=== PATIENT | female | born 1950 | race Caucasian/White ===

== ENCOUNTER → 2020-04-17 | Outpatient (CLI) | payer MEDICARE, OTHER ==
[~2020-04-17] MED LIST: AMOX-358 PO; DILT120C85 PO; DOCU-238 PO; ESTR1TAB24 PO; HYDR-4227 PO; HYDR25TA4 PO; LOSA100T57 PO; PANT40TA3 PO; SLF500T PO
--- NOTE | 2020-04-17 11:56 | Diagnostic Imaging Report ---
INDICATION: Abdominal pain. TIME OF EXAM: 11:40 a.m. FINDINGS: There are surgical clips in the gallbladder fossa. Bowel gas pattern is unremarkable. No significant stool load is identified. There is mild stool in the right colon. Small bowel is nondilated. No pathologic calcifications are seen. There is no free air. IMPRESSION: No acute feature detected. Dictated by: Dictated on workstation # [id number]
== END ==
LOC: RAD 11:24
PROVIDERS: ATTEND Nurse Practitioner Family
DX: K59.00 Constipation, unspecified (principal); R10.9 Unspecified abdominal pain; Z98.890 Other specified postprocedural states
CPT/HCPCS: 74019

== ENCOUNTER 2020-04-18 13:02 | Inpatient (IN) | payer MEDICARE, OTHER ==
[~2020-04-18] VITALS: Ht 167.7 cm; Wt 70.3 kg
--- NOTE | 2020-04-18 13:00 | NUR ---
CAITLIN FLORES admitted to room 410-1, with an admitting diagnosis of diverticulitis , on 04/18/[address] Sandoval office , accompanied by staff .CAITLIN FLORES introduced to surroundings, call light, bed controls, phone, TV, temperature control, lights, meal times, smoking policy, visitor policy, side rail policy, bathrooms and showers. Patient Rights given to patient in the handbook. CAITLIN FLORES verbalizes understanding that [facility] is not responsible for the loss or damage to any personal effects or valuables that are kept in the patients posession during their hospitalization. The following Patient Care Plans and discharge were discussed with the patient. CAITLIN FLORES verbalizes understanding of Interdisciplinary Patient Education. Patient and family were informed about the Rapid Response Team and its purpose.
--- NOTE | 2020-04-18 13:29 | History & Physical ---
History of Present Illness History of Present Illness Reason for visit/HPI This is a 69 year old female with a know history of Crohn's disease and previous small bowel obstructions who presented to my office yesterday with abdominal pain and constipation. She was concerned about a possible early bowel obstruction so she was sent for a stat flat and upright of the abdomen which showed no acute evidence of bowel obstruction or free air. However, her symptoms worsened so she was sent today for lab and a CT of the abdomen and pelvis. I was called by the radiologist with her CT scan findings and she has acute sigmoid diverticulitis with no obvious evidence of a perforation or abscess but the possibility of a microperforation. She will be directly admitted for IV antibiotics, gut rest and surgery consult. Date of Admission Date Seen by a Provider: Apr 18, 2020 Time Seen by a Provider: 13:28 I consulted on this patient on 04/18/20 13:24 Attending Physician Neida Sandoval DO Admitting Physician Neida Sandoval DO Consult Allergies and Home Medications Allergies Coded Allergies: Sulfa (Sulfonamide Antibiotics) (Verified Allergy, Unknown, 04/18/20) codeine (Verified Allergy, Unknown, 04/18/20) Patient Home Medication List Home Medication List Reviewed: Yes Past Odnygrz-Llxflp-Qbdudo Hx Past Med/Social Hx: Reviewed Nursing Past Med/Soc Hx Patient Social History Marrital Status: Employed/Student: retired Review of Systems Constitutional: weakness EENTM: No see HPI, No no symptoms reported, No ear discharge, No hearing loss, No ear pain, No blurred vision, No double vision, No eye pain, No tearing, No vision loss, No dental problems, No hoarseness, No mouth pain, No mouth swelling, No epistaxis, No nose congestion, No nose pain, No throat pain, No throat swelling, No other Respiratory: No no symptoms reported, No see HPI, No cough, No dyspnea on exertion, No hemoptysis, No orthopnea, No phlegm, No short of breath, No stridor, No wheezing, No other Cardiovascular: No no symptoms reported, No see HPI, No chest pain, No edema, No Hx of Intervention, No palpitations, No syncope, No vascular heart diseas, No other Gastrointestinal: abdominal pain (LLQ), constipation, loss of appetite, nausea Genitourinary: No no symptoms reported, No see HPI, No decreased output, No discharge, No dysuria, No frequency, No hematuria, No hesitancy, No incontinence, No nocturia, No pain, No other Musculoskeletal: No no symptoms reported, No see HPI, No back pain, No gout, No joint pain, No joint swelling, No muscle pain, No muscle stiffness, No muscle cramps, No muscle twitching, No muscle weakness, No neck pain, No other Skin: No no symptoms reported, No see HPI, No change in color, No change in hair/nails, No dryness, No hx of skin cancer, No lesions, No lumps, No pruritus, No rash, No other Psychiatric/Neurological: Denies No Symptoms Reported, Denies See HPI, Denies Anxiety, Denies Depressed, Denies Emotional Problems, Denies Headache, Denies Numbness, Denies Paresthesia, Denies Pre-Existing Deficit, Denies Seizure, Denies Tingling, Denies Tremors, Denies Weakness, Denies Other Physical Exam Vital Signs Capillary Refill : Height, Weight, BMI Height: '" Weight: lbs. oz. kg; BMI Method: General Appearance: Mild Distress HEENT: Normal ENT Inspection Neck: Supple Respiratory: Lungs Clear Cardiovascular: Regular Rate, Rhythm Gastrointestinal: Soft, Abnormal Bowel Sounds, Tenderness (generalized but w orse in LLQ) Rectal: Deferred Back: No CVA Tenderness Extremity: Non Tender, No Calf Tenderness, No Pedal Edema Neurologic/Psychiatric: Alert, Oriented x3 Skin: Warm/Dry Assessment/Plan Assessment and Plan 1. Acute Sigmoid Diverticulitis--admit and start IV Zosyn, IV Flagyl, gut rest, pain control, antiemetics, surgery consult 2. History of Crohn's Disease 3. History of PSVT--stable Admission Diagnosis Admission Status: Inpatient Order (span 2 midnights) Reason for Inpatient Admission: Will need IV abx for at least 48hrs or longer NEIDA SANDOVAL DO Apr 18, 2020 13:29
[2020-04-18] MEDS ORDERED: fentaNYL INJECTION 100 MCG/2 ML AMP IV PRN (13:30)
[2020-04-18] MEDS ORDERED: PATIENT MAY USE OWN MEDS, ALL PO SCH (13:30)
[2020-04-18] MEDS ORDERED: PIPERACILLIN/TAZO 4.5 GM/NS 100 ML IV NR ×2 (13:45)
[2020-04-18] MEDS: NS W/KCL 20 MEQ/L 1,000 ML IV SCH ×2 (13:46→21:15)
[2020-04-18 13:53] VITALS: BP 134/70
[2020-04-18] MEDS: metroNIDAZOLE 500MG/100ML IVPB 100 ML IV SCH ×2 (13:55→22:49)
[2020-04-18] MEDS ORDERED: DOCU-238 PO ×2 (14:02)
[2020-04-18] MEDS ORDERED: DILT120C85 PO ×2 (14:02)
[2020-04-18] MEDS ORDERED: LOSA100T57 PO ×2 (14:02)
[2020-04-18] MEDS ORDERED: SLF500T PO ×2 (14:02)
[2020-04-18] MEDS ORDERED: HYDR25TA4 PO ×2 (14:02)
[2020-04-18] MEDS ORDERED: PANT40TA3 PO ×2 (14:02)
[2020-04-18] MEDS ORDERED: ESTR1TAB24 PO ×2 (14:02)
--- NOTE | 2020-04-18 14:16 | NUR ---
SPOKE WITH THE PT AND WENT THRU THE EXT MED HISTORY TO COMPLETE THE MED REC SULFASALAZINE 500MG- THE DIRECTIONS FROM THE EXT MED HISTORY SHOW 2 TABS BID HOWEVER PT ONLY TAKES 1 TAB BID PROTONIX 40MG- DIRECTIONS FROM THE EXT MED HISTORY SHOW 1 TAB BID HOWEVER PT TAKES 1 TAB DAILY OTC MEDS: STOOL SOFTENER
[2020-04-18] MEDS: ENOXAPARIN 40 MG/0.4 ML (LOVENOX) SYR SC SCH (15:13)
[2020-04-18] MEDS ORDERED: HYDROcodone/APAP 7.5 MG/325 MG (LORTAB, LORCET PLUS) TABLET PO PRN (15:15)
--- NOTE | 2020-04-18 15:20 | CONSULTATION REPORT ---
DATE OF SERVICE: 04/18/2020 ADMITTING PRIMARY CARE PHYSICIAN: Dr. Sandoval. HISTORY OF PRESENT ILLNESS: The patient is a 69-year-old female with history of Crohn's disease and has had previous small bowel obstructions. She was seen at her physician's office due to abdominal distention as well as crampy pain. She felt that this was another partial small-bowel obstruction. She states that her symptoms resolved; however, today, she did have a reoccurrence of symptoms and this was also more significant in severity. She underwent a CT scan and was found to have acute sigmoid diverticulitis with no abscess; however, may be consistent with a walled off microperforation. She was admitted today and was started on broad spectrum IV antibiotics. Her last colonoscopy was approximately 5 years ago. PAST MEDICAL HISTORY: Crohn's disease, PSVT. PAST SURGICAL HISTORY: Transvaginal partial hysterectomy, Laparoscopic cholecystectomy, pacemaker implantation x3 ALLERGIES: SULFA, CODEINE. MEDICATIONS: Diltiazem 120 mg daily, estradiol 1 mg daily, hydrochlorothiazide 25 mg daily, losartan 100 mg daily, Protonix 40 mg daily, sulfasalazine 500 mg b.i.d. SOCIAL HISTORY: Negative smoke, negative alcohol. FAMILY HISTORY: Noncontributory. VITAL SIGNS: Temperature 35.6, blood pressure 134/70, pulse 74, respirations 18, pulse ox 98% on room air. REVIEW OF SYSTEMS: A well-nourished female, currently in no acute distress. She is not experiencing any shortness of breath or difficulty breathing. She does report crampy abdominal pain, more in the left lower abdominal quadrant, which is tender to palpation. She does have intermittent history of constipation, none recently. No red blood per rectum, no dark tarry stools. No fever, chills, no recent inadvertent weight loss. All other review of systems negative. PHYSICAL EXAMINATION: CHEST: Clear. Good breath sounds bilaterally. HEART: Regular, no murmurs. EXTREMITIES: No lower extremity edema, negative Homans sign. HEENT: No scleral icterus. NECK: No cervical lymphadenopathy. ABDOMEN: Soft, slightly distended. There is pain in the left lower abdominal quadrant with voluntary guarding, no rebound. SKIN: Warm, dry. LABORATORY DATA: WBC 8.9, hemoglobin 12.0, hematocrit 35, platelets 257, BUN 15, creatinine 1.07. ASSESSMENT AND PLAN: A 69-year-old female with sigmoid diverticulitis. We will proceed with conservative management with bowel rest with clear liquid diet as well as broad spectrum IV antibiotics. Once resolved, she may advance diet to a low residue diet. Once she is discharged home, we will then await approximately six weeks to allow for inflammation to subside and then have her proceed with a followup colonoscopy. We will continue to monitor her progress, continue her current therapy. Job ID: [id number] DocumentID: [id number] Dictated Date: 04/18/2020 14:45:36 Behavioral Interventionist Date: 04/18/2020 15:19:57 Dictated By: JARVIS GAINES MD MTDD
[2020-04-18 16:01] VITALS: BP 110/58
[2020-04-18] MEDS: ONDANSETRON 4 MG/2 ML (SDV) Z0FRAN IVP PRN ×2 (18:18→22:49)
[2020-04-18] MEDS ORDERED: CATHETER FLUSH 10 ML SYR IV PRN (19:00)
[2020-04-18 20:00] VITALS: BP 109/53
[2020-04-18] MEDS ORDERED: ACETAMINOPHEN 325 MG TABLET ONE (20:42)
[2020-04-18] MEDS ORDERED: dilTIAZem120 MG (CARDIZEM CD) CAP PO SCH (21:00)
[2020-04-18] MEDS ORDERED: DOCUSATE SODIUM 100 MG (COLACE) CAP PO SCH (21:00)
[2020-04-18] MEDS: PIPERACILLIN/TAZOBACTAM (BULK) 4.5 GM in NS (IVPB) 100 ML IV SCH (21:45)
[2020-04-18] MEDS: sulfaSALAzine 500 MG (AZULFIDINE) TAB PO SCH (21:46)
[2020-04-19] MEDS ORDERED: PROMETHAZINE INJ 25 MG/ML (PHENERGAN) AMP IVP PRN
[2020-04-19 00:01] VITALS: BP_SYST 115; BP_SYST 131; BP_DIAS 61; BP_DIAS 62
[2020-04-19] MEDS: NS W/KCL 20 MEQ/L 1,000 ML IV SCH ×2 (03:31→13:17)
[2020-04-19] MEDS: PIPERACILLIN/TAZOBACTAM (BULK) 4.5 GM in NS (IVPB) 100 ML IV SCH ×2 (03:38→13:10)
[2020-04-19 04:05] VITALS: BP 107/53
[2020-04-19 05:23] LABS: HEMOGLOBIN 9.8 G/DL (11.5-16.0); MEAN PLATELET VOLUME 9.2 FL (7.4-10.4); RED CELL DISTRIBUTION WIDTH 11.9 % (10.0-14.5); WHITE BLOOD COUNT 5.3 10^3/uL (4.3-11.0)
[2020-04-19 05:35] LABS: ALBUMIN 3.2 GM/DL (3.2-4.5)
[2020-04-19 05:36] LABS: POTASSIUM 3.2 MMOL/L (3.6-5.0)
[2020-04-19 05:37] LABS: CALCIUM 7.8 MG/DL (8.5-10.1)
[2020-04-19 05:38] LABS: TOTAL PROTEIN 5.8 GM/DL (6.4-8.2)
[2020-04-19 05:40] LABS: BILIRUBIN,TOTAL 0.5 MG/DL (0.1-1.0)
[2020-04-19 05:42] LABS: CREATININE SERUM 0.93 MG/DL (0.60-1.30)
[2020-04-19 08:00] VITALS: BP 93/61
--- NOTE | 2020-04-19 08:00 | NUR ---
IV in Right hand fell out. new IV placed in Left AC area
--- NOTE | 2020-04-19 08:29 | Progress Note ---
Subjective Subjective Date Seen by Provider: Apr 19, 2020 Time Seen by Provider: 08:48 69 yo F admitted for diverticulitis with possible microperforation. Patient reports she feels much better- abdominal pain has improved. She would like to go home today because she feels the risk of getting another infection (COVID-19) is more of a threat than her diverticulitis. Review of Systems General: No Chills, No Night Sweats HEENT: No Head Aches Pulmonary: No Dyspnea, No Cough Cardiovascular: No: Chest Pain Gastrointestinal: Abdominal Pain (improved); No: Nausea, Vomiting Genitourinary: No Dysuria, No Frequency Neurological: No: Weakness Objective Exam Vital Signs Vital Signs Date Time Temp Pulse Resp B/P (MAP) Pulse Ox O2 Delivery O2 Flow Rate FiO2 04/19/20 07:00 62 04/19/20 04:05 36.2 61 18 107/53 (71) 96 Room Air 04/19/20 01:00 65 04/19/20 00:01 36.5 84 20 131/61 (84) 98 Room Air 04/18/20 20:20 Room Air 04/18/20 20:00 Room Air 04/18/20 20:00 36.6 70 20 109/53 (71) 96 Room Air 04/18/20 19:00 77 04/18/20 16:01 36.2 70 18 110/58 (75) 97 Room Air 04/18/20 15:58 64 04/18/20 13:53 35.6 74 18 134/70 98 Room Air I & O 04/19/20 07:00 Intake Total 1520 ml Balance 1520 ml General Appearance: No Mild Distress HEENT: Normal ENT Inspection Neck: Supple Respiratory: Lungs Clear Cardiovascular: Regular Rate, Rhythm Gastrointestinal: Normal Bowel Sounds, Soft; No Abnormal Bowel Sounds, No Distended, No Guarding, No Tenderness Rectal: Deferred Back: No CVA Tenderness Extremity: Non Tender, No Calf Tenderness, No Pedal Edema Neurologic/Psychiatric: Alert, Oriented x3 Skin: Warm/Dry Results Lab Laboratory Tests 04/18/20 15:15: Lactic Acid Level 0.74, Magnesium Level 1.8 04/19/20 04:52: White Blood Count 5.3, Red Blood Count 3.15L, Hemoglobin 9.8L, Hematocrit 29L, Mean Corpuscular Volume 91, Mean Corpuscular Hemoglobin 31, Mean Corpuscular Hemoglobin Concent 34, Red Cell Distribution Width 11.9, Platelet Count 234, Mean Platelet Volume 9.2, Sodium Level 140, Potassium Level 3.2L, Chloride Level 104, Carbon Dioxide Level 24, Anion Gap 12, Blood Urea Nitrogen 14, Creatinine 0.93, Estimat Glomerular Filtration Rate 60, BUN/Creatinine Ratio 15, Glucose Level 101, Calcium Level 7.8L, Corrected Calcium 8.4L, Total Bilirubin 0.5, Aspartate Amino Transf (AST/SGOT) 25, Alanine Aminotransferase (ALT/SGPT) 18, Alkaline Phosphatase 112, Total Protein 5.8L, Albumin 3.2 Assessment/Plan Assessment/Plan Assessment and Plan 04/19/20- continue zosyn. bowel rest on clear liquid. will need 48hours on IV antibiotics. Plan for colonoscopy 6 weeks after resolution. replacing potassium Dispo: monitoring her condition- Patient would like to go home today- will see what Dr. Van says- otherwise plan to be inpatient until tomorrow after 48hours of IV antibiotics are completed and tolerating a diet. Problems: (1) Sigmoid diverticulitis (2) Hypokalemia Assessment & Plan: replacing (3) Crohn disease (4) HTN (hypertension) Qualifiers: Qualified Codes: I10 - Essential (primary) hypertension Assessment & Plan: continue home meds; if hypotensive hold antihypertensives. (5) PSVT (paroxysmal supraventricular tachycardia) Assessment & Plan: stable- monitor on tele Clinical Quality Measures DVT/VTE Risk/Contraindication: Risk Factor Score Per Nursin RFS Level Per Nursing on Admit: 3=High SONDRA LEONE MD Apr 19, 2020 08:29
[2020-04-19] MEDS ORDERED: KCL 10 MEQ TAB (MICRO K) PO SCH (08:30)
[2020-04-19] MEDS: sulfaSALAzine 500 MG (AZULFIDINE) TAB PO SCH (08:51)
[2020-04-19] MEDS: POTASSIUM CL 10MEQ/50ML IVPB 50 ML IV SCH ×3 (08:54→12:32)
[2020-04-19] MEDS ORDERED: PANTOPRAZOLE 40 MG (PROTONIX) TAB PO SCH (09:00)
[2020-04-19] MEDS ORDERED: PANTOPRAZOLE 40 MG (PROTONIX) VIAL IV SCH (09:00)
[2020-04-19] MEDS ORDERED: HYDROCHLOROTHIAZIDE 25 MG (HCTZ) TAB PO SCH (09:00)
[2020-04-19] MEDS ORDERED: ESTRADIOL 1 MG TAB (ESTRACE) PO SCH ×2 (09:00→21:00)
[2020-04-19] MEDS ORDERED: LOSARTAN 100 MG (COZAAR) TABLET PO SCH (09:00)
--- NOTE | 2020-04-19 11:44 | Progress Note ---
Subjective Date Seen by a Provider: Apr 19, 2020 Time Seen by a Provider: 10:50 Subjective/Events-last exam Patient seen with Dr. Van. Patient reports pain is much better. Denies any fever or chills as well as no nausea or vomiting. Tolerating clear liquid diet. Focused Exam Lactate Level 04/18/20 15:15: Lactic Acid Level 0.74 Objective Exam Vital Signs Date Time Temp Pulse Resp B/P (MAP) Pulse Ox O2 Delivery O2 Flow Rate FiO2 04/19/20 08:00 Room Air 04/19/20 08:00 36.1 57 20 93/61 (72) 98 Room Air 04/19/20 07:00 62 04/19/20 04:05 36.2 61 18 107/53 (71) 96 Room Air 04/19/20 01:00 65 04/19/20 00:01 36.5 84 20 131/61 (84) 98 Room Air 04/18/20 20:20 Room Air 04/18/20 20:00 Room Air 04/18/20 20:00 36.6 70 20 109/53 (71) 96 Room Air 04/18/20 19:00 77 04/18/20 16:01 36.2 70 18 110/58 (75) 97 Room Air 04/18/20 15:58 64 04/18/20 13:53 35.6 74 18 134/70 98 Room Air I & O 04/19/20 07:00 Intake Total 1520 ml Balance 1520 ml Capillary Refill : Less Than 3 Seconds General Appearance: No Apparent Distress, WD/WN Neck: Full Range of Motion, Normal Inspection, Non Tender Respiratory: Normal Breath Sounds, No Accessory Muscle Use, No Respiratory Distress Cardiovascular: Regular Rate, Rhythm, No Edema Gastrointestinal: normal bowel sounds, soft, tenderness (LLQ) Extremity: Normal Inspection, Normal Range of Motion Neurologic/Psychiatric: Alert, Oriented x3 Skin: Normal Color, Warm/Dry Results Lab Laboratory Tests 04/18/20 15:15: Lactic Acid Level 0.74, Magnesium Level 1.8 04/19/20 04:52: White Blood Count 5.3, Red Blood Count 3.15L, Hemoglobin 9.8L, Hematocrit 29L, Mean Corpuscular Volume 91, Mean Corpuscular Hemoglobin 31, Mean Corpuscular Hemoglobin Concent 34, Red Cell Distribution Width 11.9, Platelet Count 234, Mean Platelet Volume 9.2, Sodium Level 140, Potassium Level 3.2L, Chloride Level 104, Carbon Dioxide Level 24, Anion Gap 12, Blood Urea Nitrogen 14, Creatinine 0.93, Estimat Glomerular Filtration Rate 60, BUN/Creatinine Ratio 15, Glucose Level 101, Calcium Level 7.8L, Corrected Calcium 8.4L, Total Bilirubin 0.5, Aspartate Amino Transf (AST/SGOT) 25, Alanine Aminotransferase (ALT/SGPT) 18, Alkaline Phosphatase 112, Total Protein 5.8L, Albumin 3.2 Assessment/Plan Assessment/Plan Assess & Plan/Chief Complaint A 69 year old female with acute diverticulitis VSS WBC WNL Will advance diet to low residue If tolerating diet, then patient may be DC'd home Clinical Quality Measures DVT/VTE Risk/Contraindication: Risk Factor Score Per Nursin RFS Level Per Nursing on Admit: 3=High EDDIE BAIG AIRPORT GUIDE Apr 19, 2020 11:44
[2020-04-19 12:00] VITALS: BP 95/64
[2020-04-19] MEDS ORDERED: AMOX-358 PO ×2 (12:28)
[2020-04-19] MEDS ORDERED: HYDR-4227 PO ×2 (12:28)
--- NOTE | 2020-04-19 12:29 | Discharge Inst-Surgical ---
D/C Lap Instructions-KIDO Reconcile Patient Problems Problems Reviewed?: Yes New, Converted, or Re-Newed RX: RX on Chart Follow Up Appt in 2 weeks Will need colonoscopy in 6 weeks Activity as tolerated No driving for 24 hours No driving while on pain medications Incentive Spirometry use every 2 hours while awake Low residue diet for 6 weeks then High Fiber Diet 25g or more per day Avoid Alcohol, Caffeine, Spicy [place] and Acid foods. Drink 64 fluid oz or more of fluids per day. Symptoms to Report: Fever over 101 degree F, Nausea/Vomiting If any problems/questions: Contact your physician or go to Emergency Room EDDIE BAIG APRN Apr 19, 2020 12:29
[2020-04-19] MEDS: ENOXAPARIN 40 MG/0.4 ML (LOVENOX) SYR SC SCH (14:59)
--- NOTE | 2020-04-19 15:00 | NUR ---
refused lovenox. patient to discharge home soon
[2020-04-19 15:30] VITALS: BP 90/59
--- NOTE | 2020-04-20 07:31 | Discharge Summary ---
Discharge Summary Hospital Course Was the Problem List Reviewed?: Yes Problems/Dx: (1) Sigmoid diverticulitis Status: Acute (2) Hypokalemia (3) Crohn disease (4) HTN (hypertension) Status: Chronic Qualifiers: Qualified Codes: I10 - Essential (primary) hypertension (5) PSVT (paroxysmal supraventricular tachycardia) Status: Chronic Hospital Course Date of Admission: Apr 18, 2020 at 13:29 Admission Diagnosis : 1. Acute Sigmoid Diverticulitis-- 2. History of Crohn's Disease 3. History of PSVT-- Family Physician/Provider: Neida Sandoval DO Date of Discharge: 04/20/20 Discharge Diagnosis: (1) Sigmoid diverticulitis (2) Hypokalemia (3) Crohn disease (4) HTN (hypertension) (5) PSVT (paroxysmal supraventricular tachycardia) Hospital Course: This is a 69 year old female with a know history of Crohn's disease and previous small bowel obstructions who presented to my office yesterday with abdominal pain and constipation. She was concerned about a possible early bowel obstruction so she was sent for a stat flat and upright of the abdomen which showed no acute evidence of bowel obstruction or free air. However, her symptoms worsened so she was sent today for lab and a CT of the abdomen and pelvis. I was called by the radiologist with her CT scan findings and she has acute sigmoid diverticulitis with no obvious evidence of a perforation or abscess but the possibility of a microperforation. She will be directly admitted for IV antibiotics, gut rest and surgery consult. The following morning she was much improved- afebrile, normal WBC count and felt like going home. Surgery rounded on patient and discharged her home. Patient made significant change that she did not need the full 2 midnights. Admission was erred on the side of caution in the event she had a marc roperforation of her bowel that was not seen on the CT. It does not appear she had a bowel perforation thus she was able to be discharged home after one midnight. Labs and Pending Lab Test: Microbiology 04/18/20 Blood Culture - Preliminary, Resulted No growth Home Meds Active [place] 7.5-325 Tablet (Hydrocodone/Acetaminophen) 1 Each Tablet 1 Tab PO Q4H MDD 6 TABS Augmentin 875-125 Tablet (Amoxicillin/Potassium Clav) 1 Each Tablet 1 Each PO BID Reported Stool Softener (Docusate Sodium) 100 Mg Capsule 200 Mg PO HS Diltiazem ER (Diltiazem HCl) 120 Mg Capsule.er 120 Mg PO HS Losartan Potassium 100 Mg Tablet 100 Mg PO DAILY Hydrochlorothiazide 25 Mg Tablet 25 Mg PO DAILY Pantoprazole Sodium 40 Mg Tablet.dr 40 Mg PO DAILY Sulfasalazine 500 Mg Tablet 500 Mg PO BID Estradiol Tablet (Estradiol) 1 Mg Tablet 1 Mg PO DAILY Assessment/Pt Instructions low residual diet complete antibiotics follow up with colonoscopy in 6 weeks. Discharge Planning: <30 minutes discharge planning Discharge Instructions Discharge Diet: Low Residue Activity as Tolerated: Yes Discharge Physical Examination Vital Signs Vital Signs Date Time Temp Pulse Resp B/P (MAP) Pulse Ox O2 Delivery O2 Flow Rate FiO2 04/19/20 17:45 04/19/20 15:30 36.6 61 18 98 Room Air General Appearance: No Apparent Distress HEENT: PERRL/EOMI Respiratory: Lungs Clear, Normal Breath Sounds Cardiovascular: Regular Rate, Rhythm, No Edema Gastrointestinal: Non Tender, Soft Extremity: Non Tender, No Calf Tenderness Skin: Normal Color, Warm/Dry Neurologic/Psychiatric: Alert, Oriented x3, Normal Mood/Affect Allergies: Coded Allergies: Sulfa (Sulfonamide Antibiotics) (Verified Allergy, Unknown, 04/18/20) codeine (Verified Allergy, Unknown, 04/18/20) Discharge Summary Date of Admission Apr 18, 2020 at 13:29 Date of Discharge Apr 19, 2020 at 17:45 Discharge Diagnosis (1) Sigmoid diverticulitis Status: Acute (2) Hypokalemia Assessment & Plan: replacing (3) Crohn disease (4) HTN (hypertension) Status: Chronic Assessment & Plan: continue home meds; if hypotensive hold antihypertensives. Qualifiers: Qualified Codes: I10 - Essential (primary) hypertension (5) PSVT (paroxysmal supraventricular tachycardia) Status: Chronic Assessment & Plan: stable- monitor on tele Clinical Quality Measures DVT/VTE Risk/Contraindication: Risk Factor Score Per Nursin RFS Level Per Nursing on Admit: 3=High SONDRA LEONE MD Apr 20, 2020 07:30
== END 2020-04-19 17:45 | disposition home or self-care (01) | DRG 392 ==
LOC: 4TH 13:29
PROVIDERS: ADMIT Family Medicine; ATTEND Family Medicine
DX: K57.00 Diverticulitis of small intestine with perforation and abscess without bleeding (principal); K50.90 Crohn's disease, unspecified, without complications; I47.1 Supraventricular tachycardia; K59.00 Constipation, unspecified; E87.6 Hypokalemia; I10 Essential (primary) hypertension; Z88.2 Allergy status to sulfonamides; Z87.19 Personal history of other diseases of the digestive system; Z88.5 Allergy status to narcotic agent
CPT/HCPCS: 36415; 80053; 83605; 83735; 85027; 87040

== ENCOUNTER → 2020-04-18 | Outpatient (CLI) | payer MEDICARE, OTHER ==
[~2020-04-18] MED LIST changes: +CATHETER FLUSH 10 ML SYR IV PRN; +HOLD METFORMIN - RECEIVED CONTRAST 20 ML VIAL IV SCH; +IOHEXOL 350 MG/ML 100 ML (OMNIPAQUE 350) VIAL IV ONE; +NS 100 ML (IVPB) BAG IV ONE
[2020-04-18 11:25] LABS: BASOPHILS % (AUTO) 0 % (0-10); EOSINOPHILS % (AUTO) 0 % (0-10); HEMATOCRIT 35 % (35-52); LYMPHOCYTES # (AUTO) 1.4 X 10^3 (1.0-4.0); LYMPHOCYTES % (AUTO) 16 % (12-44); MEAN CORPUSCULAR HEMOGLOBIN 31 PG (25-34); MEAN CORPUSCULAR HGB CONC 34 G/DL (32-36); MEAN CORPUSCULAR VOLUME 91 FL (80-99); MEAN PLATELET VOLUME 9.1 FL (7.4-10.4); MONOCYTES # (AUTO) 0.6 X 10^3 (0.0-1.0); MONOCYTES % (AUTO) 7 % (0-12); NEUTROPHILS # (AUTO) 6.9 X 10^3 (1.8-7.8); NEUTROPHILS % (AUTO) 77 % (42-75); PLATELET COUNT 257 10^3/uL (130-400); WHITE BLOOD COUNT 8.9 10^3/uL (4.3-11.0)
[2020-04-18 11:48] LABS: ALBUMIN 4.2 GM/DL (3.2-4.5); BILIRUBIN,TOTAL 0.7 MG/DL (0.1-1.0); CALCIUM 9.9 MG/DL (8.5-10.1); CREATININE SERUM 1.07 MG/DL (0.60-1.30); POTASSIUM 3.3 MMOL/L (3.6-5.0); TOTAL PROTEIN 7.6 GM/DL (6.4-8.2)
[2020-04-18 12:01] LABS: ERYTHROCYTE SEDIMENTATION RATE 88 MM/HR (0-30)
--- NOTE | 2020-04-18 12:49 | Diagnostic Imaging Report ---
PROCEDURE: CT abdomen and pelvis with contrast. TECHNIQUE: Multiple contiguous axial images were obtained through the abdomen and pelvis after administration of intravenous contrast. Auto Exposure Controls were utilized during the CT exam to meet ALARA standards for radiation dose reduction. INDICATION: Abdominal pain, constipation and bloating. COMPARISON: Comparison is made with prior CT from 05/17/2011. FINDINGS: The lung bases are clear. Previously noted enhancing lesion in the dome of the right lobe of the liver is not well seen on today's study. No new liver mass is detected. Gallbladder is surgically absent. No biliary ductal dilatation is seen. The pancreas and spleen are unremarkable. No adrenal mass is detected. Kidneys are unremarkable. There is no hydronephrosis. Aorta is non-aneurysmal. No central, retroperitoneal, or mesenteric lymphadenopathy is seen. Bowel loops are normal caliber without evidence of obstruction. There is significant diverticulosis of the descending and sigmoid colon. In addition, the distal sigmoid colon near these rectosigmoid junction demonstrates marked wall thickening. There is adjacent inflammatory stranding and findings are consistent with acute diverticulitis. Small gas collections adjacent to the inflamed sigmoid loop are noted, indeterminate between intraluminal/intradiverticular gas collections versus small amount of extraluminal gas from a microperforation. There is some trace fluid adjacent to the inflamed sigmoid loop but no well-formed fluid collection or abscess is seen at this time. The bladder is unremarkable. No other abnormalities are identified. IMPRESSION: 1. Findings consistent with acute sigmoid diverticulitis. Microperforation of the inflamed sigmoid loop cannot be entirely excluded at this time. There is some very small amount of fluid adjacent to the inflamed sigmoid loop but no well-formed fluid collection or abscess is seen. There is no evidence of bowel obstruction. Report was called to Dr. Sandoval prior to this dictation. Dictated by: Dictated on workstation # [id number]
== END ==
LOC: RAD 11:11
PROVIDERS: ATTEND Family Medicine
DX: K59.00 Constipation, unspecified (principal); R10.9 Unspecified abdominal pain; R14.0 Abdominal distension (gaseous); Z90.49 Acquired absence of other specified parts of digestive tract
CPT/HCPCS: 36415; 74177; 80053; 82150; 83690; 85025; 85652

== ENCOUNTER → 2020-12-09 | Outpatient (CLI) | payer MEDICARE, OTHER ==
[~2020-12-09] MED LIST changes: -DOCU-238 PO; +DOCU-241 PO; -PANT40TA3 PO; +PANT40TA52 PO
[2020-12-09 11:18] LABS: CREATININE SERUM 1.03 MG/DL (0.60-1.30)
--- NOTE | 2020-12-09 11:50 | Diagnostic Imaging Report ---
PROCEDURE: CT abdomen and pelvis with contrast. TECHNIQUE: Multiple contiguous axial images were obtained through the abdomen and pelvis after administration of intravenous contrast. Auto Exposure Controls were utilized during the CT exam to meet ALARA standards for radiation dose reduction. All CT scans use one or more of the following dose optimizing techniques: automated exposure control, MA and/or KvP adjustment based on patient size and exam type or iterative reconstruction. INDICATION: Lower abdominal pain bilaterally with history of diverticulitis. COMPARISON: Correlation is made with prior CT from 04/18/2020. FINDINGS: Lung bases are clear. No discrete liver mass is identified. Gallbladder is surgically absent. There is no biliary ductal dilatation. Pancreas and spleen are unremarkable. No adrenal mass is identified. Kidneys are unremarkable. Aorta is nonaneurysmal. Extensive sigmoid diverticulosis is again noted. There is some minimal inflammatory stranding in the low right pelvis, however overall appearance is significantly improved since prior CT from March 2020. There is no bowel obstruction. There is no fluid collection or abscess formation. There is no free air identified. The bladder is unremarkable. Uterus appears surgically absent. IMPRESSION: Extensive sigmoid diverticulosis. There is very minimal inflammation in the pelvis which could indicate a very early diverticulitis but no abscess formation or bowel obstruction is seen at this time. Dictated by: Dictated on workstation # [id number]
== END ==
LOC: RAD 10:42
PROVIDERS: ATTEND Family Medicine
DX: K57.30 Diverticulosis of large intestine without perforation or abscess without bleeding (principal); K50.90 Crohn's disease, unspecified, without complications; Z87.19 Personal history of other diseases of the digestive system
CPT/HCPCS: 36415; 74177; 82565; 84520